=== PATIENT | male | born 1990 | race Two or more races ===

== ENCOUNTER 2019-04-08 22:33 | Emergency (ER) | payer SELFPAY ==
[~2019-04-08] VITALS: Ht 175.3 cm; Wt 82.0 kg
[2019-04-08 22:36] VITALS: BP 112/62
== END 2019-04-08 23:28 | disposition left against medical advice (07) ==
LOC: ER 22:33
DX: Z53.21 Procedure and treatment not carried out due to patient leaving prior to being seen by health care provider (principal)